=== PATIENT | male | born 1990 | race Caucasian/White ===

== ENCOUNTER 2018-06-14 00:01 | Emergency (ER) | payer SELFPAY ==
[~2018-06-14] VITALS: Ht 182.9 cm; Wt 104.3 kg
--- NOTE | 2018-06-14 00:05 | NUR ---
ED Nurse Note: LEON MÁRQUEZ RA [address] C/O BILATERAL LEG AND BEHAVIOURAL X 7515. PATIENT REFUSE TO DISCLOSE IDENTIFICATION. Pt is AO x 4 times, VSS, on room air no distress. Pt refused to tell nurse his name. Assess Pt and found colostomy stoma on Pt L lower abdominal area. TIARRAD seen Pt at bedside.
[2018-06-14 00:26] VITALS: BP 154/78
--- NOTE | 2018-06-14 00:57 | Emergency Room Report ---
History of Present Illness General Chief Complaint: Behavioral Complaint Source: Patient Present Illness HPI This is an approximately 28-year-old male brought in by EMS as a Miguel Mercer because he refuse to give his name. He was at a nearby grocery store and refused to leave so 911 was called. Initially he complained of bilateral feet pain. When he got here he denies any symptoms. He refuse to give a name. Said his name is Leeroy Mcmanus. He denies any trauma. I have seen this patient in the past because he has a colostomy bag that was leaking and required a new bag. When I told him that he is at [employer], he asked if this was [employer]. He then ask if it ia [employer]. He denies any suicidal thoughts homicidal thought. He is is not cooperative with any other questioning. Allergies: Coded Allergies: No Known Allergies (Unverified , 06/13/18) Patient History Past Medical History: see triage record, old chart reviewed Past Surgical History: other - Colostomy Pertinent Family History: unable to obtain Social History: Denies: smoking Immunizations: other Reviewed Nursing Documentation: PMH: Agreed; PSxH: Agreed Nursing Documentation-PMH Past Medical History: No Stated History Review of Systems All Other Systems: limited - Patient is not cooperative Physical Exam Vital Signs Date Time Temp Pulse Resp B/P (MAP) Pulse Ox O2 Delivery O2 Flow Rate FiO2 06/13/18 23:54 80 16 162/82 98 06/14/18 00:26 98.4 Room Air vitals with high blood pressure Sp02 EP Interpretation: reviewed, normal General Appearance: well appearing, no apparent distress, alert Head: normocephalic, atraumatic Eyes: bilateral eye PERRL, bilateral eye EOMI ENT: hearing grossly normal, normal pharynx Neck: full range of motion, supple, no meningismus Respiratory: chest non-tender, lungs clear, normal breath sounds Cardiovascular #1: regular rate, rhythm, no murmur Gastrointestinal: normal bowel sounds, non tender, no mass, no organomegaly, no bruit, non-distended, other - Colostomy area in the left lower quadrant. He has a plastic bag over it. Musculoskeletal: back normal, gait/station normal, normal range of motion Psychiatric: mood/affect normal Skin: warm/dry Medical Decision Making Restraint Reassesment I, The treating physician, Dr Jean Pierre Mauricio, has assessed and agreed that patient is medically stable for discharge to an outpatient disposition. Diagnostic Impression: Primary Impression: Behavioral disorder ER Course Patient initially with bilateral feet pain. He's walking without any difficulty. No evidence of any trauma. I gave him a new colostomy bag. Patient has no trauma to warrant x-ray or CT scan. He is not suicidal or homicidal. His psychiatric issue is at baseline. We'll discharge home. Patient said he doesn't want to go into group home. Last Vital Signs Date Time Temp Pulse Resp B/P (MAP) Pulse Ox O2 Delivery O2 Flow Rate FiO2 06/14/18 00:26 89 16 Room Air 06/14/18 00:26 98.4 154/78 98 Status: improved Disposition: HOME, SELF-CARE Scripts Unable to Obtain Active Prescriptions or Reported Meds Additional Instructions: Follow-up with your doctor in 7 days. Follow-up with mental health in 7 days. Return if symptom worsen. Jean Pierre Mauricio MD Jun 14, 2018 00:57
--- NOTE | 2018-06-14 02:00 | NUR ---
ED Nurse Note: Noticed Pt has sleep apnea, turn Pt to side and breathing better.
--- NOTE | 2018-06-14 04:30 | NUR ---
ED Nurse Note: Clean and change the new stoma bag for pt.
--- NOTE | 2018-06-14 05:00 | NUR ---
ED Nurse Note: Offer the drink to Pt.
[2018-06-14 05:10] VITALS: BP 104/58
--- NOTE | 2018-06-14 05:29 | NUR ---
Homeless Discharge: Patient is being discharged from medical care. Awake, alert and oriented x3. After care instructions, including referral to community resources were given. Patient verbalized understanding of After care instructions; at this time patient does not request medications, equipment or placement. PT sign DC paper but confused the homeless log so didn't want to sign it. All medical devices such ID band were removed. Patient ambulated out with all personal belongings with steady gait. Drink was offered.
[2018-06-14 05:31] VITALS: BP 104/58
== END 2018-06-14 05:33 | disposition home or self-care (01) ==
LOC: EDBD 00:01 → EMR 00:51
DX: F91.9 Conduct disorder, unspecified (principal); M79.672 Pain in left foot; M79.671 Pain in right foot
CPT/HCPCS: 99282